=== PATIENT | male | born 1975 | race Caucasian/White ===

== ENCOUNTER 2024-10-24 20:24 | Emergency (ER) | payer OTHER ==
[2024-10-24] MEDS: Metoclopramide 10 MG/2 ML SDV IVPUSH ONE (21:51)
[2024-10-24] MEDS: Meperidine PF 100 MG/ML Syringe IVPUSH ONE (22:44)
[2024-10-24] MEDS: Ketorolac 15 MG/ML SDV IVPUSH ONE (22:46)
[2024-10-24] MEDS: Sodium Chloride 0.9% 1,000 ML IV SCH (23:00)
== END 2024-10-25 00:07 | disposition home or self-care (01) ==
LOC: JP.ED 20:24
DX: G43.909 Migraine, unspecified, not intractable, without status migrainosus (principal)
CPT/HCPCS: 96361; 96374; 96375; 99283; J1885; J2175; J2765; J7030